=== PATIENT | male | born 2000 | race Caucasian/White ===

== ENCOUNTER 2021-11-17 11:34 | Observation (INO) ==
[2021-11-17 12:36] LABS: Bacteria,Urine Few per hpf (None-Few); Bilirubin,Urine Negative (Negative); Blood,Urine Negative (Negative); Clarity,Urine Turbid (Clear); Color,Urine Yellow (Yellow); Glucose,Urine (UA) Normal (Normal); Ketones,Urine Negative (Negative); Leukocyte Esterase,Urine Negative (Negative); Mucus,Urine Few per lpf (None-Few); Nitrite,Urine Negative (Negative); PH,Urine 8.5 pH Units (5.0-8.0); Protein,Urine Trace mg/dL (Neg-Trace); RBC,Urine 0-3 per hpf (0-3); Specific Gravity,Urine 1.028 (1.010-1.025); WBC,Urine 0-3 per hpf (0-3)
[2021-11-17 12:40] LABS: Basophils % 0.6 %; Eosinophils % 0.8 %; Hematocrit 46.4 % (37.5-50.1); Immature Granulocytes % 0.2 % (0-4); Lymphocytes # 1.3 K/mcL (0.6-4.6); Lymphocytes % 25.2 %; Mean Corpuscular HGB Conc 34.5 g/dL (31.6-35.5); Mean Corpuscular Volume 87.1 fL (83.0-100.0); Mean Platelet Volume 10.9 fL (9.4-12.4); Monocytes # 0.5 K/mcL (0.0-1.3); Neutrophils # 3.3 K/mcL (1.6-8.9); Platelet Count 208 K/mcL (140-400); Red Blood Count 5.33 M/mcL (4.19-5.50); Red Cell Distribution Width 11.5 % (11.5-14.5); Segmented Neutrophils % 63.2 %; White Blood Count 5.2 K/mcL (4.3-11.1)
[2021-11-17 13:09] LABS: Alanine Aminotransferase 23 Units/L (7-52); Albumin 5.2 g/dL (3.5-5.7); Albumin/Globulin Ratio 2.2 (1.1-2.2); Alkaline Phosphatase 73 Units/L (34-104); Amylase 49 Units/L (29-103); Aspartate Amino Transferase 15 Units/L (13-39); BUN/Creatinine Ratio 14 (6-26); Bilirubin,Total 0.6 mg/dL (0.3-1.0); Blood Urea Nitrogen 15 mg/dL (6-20); Calcium 9.7 mg/dL (8.6-10.3); Carbon Dioxide 27 mEq/L (23-29); Chloride 105 mEq/L (98-107); Globulin 2.4 g/dL (2.4-3.5); Glucose 97 mg/dL (70-105); Lipase 59 Units/L (11-82); Osmolality,Calculated 291 (280-300); Sodium 140 mEq/L (136-145); Total Protein 7.6 g/dL (6.4-8.9)
[2021-11-17] MEDS ORDERED: Piperacillin/Tazobactam 3.375 GM in 0.9 % Sodium Chloride Mini Bag 100 ML IVPB ONE (13:43)
[2021-11-17] MEDS ORDERED: Ondansetron 4 MG/2 ML VIAL IVP PRN ×3 (13:44→17:12)
[2021-11-17] MEDS ORDERED: 0.9 % Sodium Chloride 1,000 ML IVC SCH (13:45)
[2021-11-17] MEDS ORDERED: Lidocaine -MPF 2% 5 ML VIAL ONE (14:12)
[2021-11-17] MEDS ORDERED: *HR* FentaNYL (PF) 100 MCG/2 ML VIAL ONE (14:12)
[2021-11-17] MEDS ORDERED: Ondansetron 4 MG/2 ML VIAL ONE (14:12)
[2021-11-17] MEDS ORDERED: Lidocaine HCL 4 ML Topical Solution (Laryng-O-Jet Kit Sterile Pak) TP ONE (14:13)
[2021-11-17] MEDS ORDERED: *HR* Propofol 200 MG/20 ML VIAL IVP ONE (14:13)
[2021-11-17] MEDS ORDERED: *HR* Midazolam HCl 2 MG/2 ML VIAL ONE (14:13)
[2021-11-17] MEDS ORDERED: *HR* HYDROmorphone PF 0.5 MG/0.5 ML SYRINGE IVP PRN (14:37)
[2021-11-17] MEDS ORDERED: *HR* Meperidine 25 MG/ML SYRINGE IVP PRN (14:37)
[2021-11-17] MEDS ORDERED: Albuterol 2.5 MG/3 ML NEBULIZER IH PRN (14:37)
[2021-11-17] MEDS ORDERED: Sugammadex Sodium 200 MG/2 ML VIAL IV ONE (14:53)
[2021-11-17] MEDS ORDERED: Acetaminophen IV 1,000 MG/100 ML BAG IVPB ONE (14:55)
[2021-11-17] MEDS ORDERED: *HR* HYDROMORPHONE 2 MG/ML VIAL ONE (15:24)
[2021-11-17] MEDS ORDERED: *HR* OxyCODONE/APAP 5/325 TABLET PO PRN (17:12)
[2021-11-17] MEDS: Ketorolac 30 MG/ML VIAL IVP SCH (17:37)
[2021-11-17] MEDS: Piperacillin/Tazobactam 3.375 GM in 0.9 % Sodium Chloride Mini Bag 100 ML IVPB SCH (20:00)
[2021-11-17] MEDS ORDERED: *HR* LORazepam 2 MG/ML VIAL IVP PRN (20:43)
[2021-11-18 02:26] VITALS: PULSE 78
[2021-11-18 03:31] LABS: Hematocrit 42.7 % (37.5-50.1); Hemoglobin 14.7 g/dL (12.9-16.9); Immature Granulocytes % 0.5 % (0-4); Lymphocytes # 0.7 K/mcL (0.6-4.6); Lymphocytes % 7.3 %; Mean Corpuscular HGB Conc 34.4 g/dL (31.6-35.5); Mean Corpuscular Hemoglobin 30.1 pg (28.0-33.3); Mean Corpuscular Volume 87.3 fL (83.0-100.0); Mean Platelet Volume 11.1 fL (9.4-12.4); Monocytes # 0.5 K/mcL (0.0-1.3); Monocytes % 5.2 %; Neutrophils # 7.7 K/mcL (1.6-8.9); Platelet Count 217 K/mcL (140-400); Red Blood Count 4.89 M/mcL (4.19-5.50); Red Cell Distribution Width 11.6 % (11.5-14.5); White Blood Count 8.9 K/mcL (4.3-11.1)
[2021-11-18] MEDS: Ketorolac 30 MG/ML VIAL IVP SCH ×2 (05:14→09:04)
[2021-11-18] MEDS: Piperacillin/Tazobactam 3.375 GM in 0.9 % Sodium Chloride Mini Bag 100 ML IVPB SCH (05:16)
[2021-11-18 08:39] VITALS: BP 132/75; TEMP 98; O2SAT 99
[2021-11-18] MEDS ORDERED: Ibuprofen 800 MG TABLET PO ONE (10:59)
== END 2021-11-18 12:55 | disposition home or self-care (01) ==
LOC: 3ANU 11:34 → EMEROOARM 11:34 → 3ANU 14:09
PROVIDERS: ADMIT Surgery; ATTEND Surgery